=== PATIENT | female | born 1990 | race Caucasian/White ===

== ENCOUNTER 2023-04-06 10:00 | Emergency (ER) | payer MEDICAID, SELFPAY ==
[2023-04-06 10:08] VITALS: BP 111/73; PULSE 75; RESP 20; TEMP 37; O2SAT 96; BMI 45.4
--- NOTE | 2023-04-06 10:22 | XR_ITS ---
The [address] [address] Patient Name: AMANDA PARMAR MRN: [id number] date: 1990 Sex: F Assigned Patient Location: ED.MAIN Current Patient Location: ED.MAIN Accession/Order Number: [id number] Exam Date: 04/06/2023 10:30 Report Date: 04/06/2023 11:09 At the request of: NAIDA DREW Procedure: XR chest 1V EXAM: XR chest 1V HISTORY: Dyspnea; technologist notes state productive cough for 2 weeks. COMPARISON: None. TECHNIQUE: AP erect portable chest radiograph performed. FINDINGS: The trachea is normal. The heart size is normal. The cardiomediastinal silhouette and hilar shadows are normal. The lung volumes are normal. The lung singh are clear. There is no pneumothorax or osseous abnormality. IMPRESSION: Unremarkable AP erect portable chest radiograph. Electronically authenticated by: HERMAN LINDQUIST Date: 04/06/2023 11:09
--- NOTE | 2023-04-06 10:45 | ED.URI1 ---
HPI - URI/Sore Throat General Chief Complaint: Upper Respiratory Infection Stated Complaint: COUGH/MUCUS Time Seen by Provider: 04/06/23 10:22 Source: patient Limitations: no limitations History of Present Illness HPI Narrative: patient's had cough congestion for several days. Several family members have recently been ill. She normally has clear sputum but now it stick brown and yellow. There is no blood. She has no history of chronic obstructive pulmonary disease or asthma. Does not have any other comorbidities. Does not have a cold symptomatology. No vomiting, does have slight diarrhea. Is not on any antibiotics. Continues to use substantial amounts or tobacco products. Says she gets bronchitis a couple times a year. MD elicited complaint: Reports cough; Denies sore throat or nasal congestion Related Data Home Medications Medication Instructions Recorded Confirmed No Known Home Medications 04/06/23 04/06/23 Allergies Allergy/AdvReac Type Severity Reaction Status Date / Time Penicillins Allergy Hives Verified 04/06/23 10:07 [facility] Social History Smoking status: Heavy tobacco smoker Exam Constitutional Vital Signs - 24 hr 04/06/23 10:08 Temperature 98.6 F Pulse Rate [Monitor] 75 Respiratory Rate 20 Blood Pressure [Right Arm] 111/73 Pulse Oximetry 96 Oxygen Delivery Method Room Air Common normals: no apparent distress and healthy appearing Chest Common normals: inspection of chest normal Respiratory Common normals: normal respiratory effort, no retractions and no use of accessory muscles Effort & inspection: able to speak in complete sentences and audible wheezes; no prolonged expiratory phase Cardio Rate: regular rate Extremity Common normals: normal to inspection, no calf tenderness and no pedal edema Course Vital Signs Vital signs: Vital Signs Temperature 98.6 F 04/06/23 10:08 Pulse Rate 75 04/06/23 10:08 Respiratory Rate 20 04/06/23 10:08 Blood Pressure 111/73 04/06/23 10:08 Pulse Oximetry 96 04/06/23 10:08 Oxygen Delivery Method Room Air 04/06/23 10:08 Temperature 98.6 F 04/06/23 10:08 Pulse Rate 75 04/06/23 10:08 Respiratory Rate 20 04/06/23 10:08 Blood Pressure 111/73 04/06/23 10:08 Pulse Oximetry 96 04/06/23 10:08 Oxygen Delivery Method Room Air 04/06/23 10:08 MDM - URI/Sore Throat MDM Narrative Medical decision making narrative: patient presents went uncomplicated upper estuary infection consistent with a purulent bronchitis and is a very heavy smoker at risk for bacterial infection. We'll initiate an antibiotic and put her on a bronchial dilator. Cigarette cessation was discussed in detail. Differential Diagnosis Differential diagnosis: Likely upper respiratory infection and bronchitis Smoking Cessation Time spent discussing smoking cessation with patient: 3 to 10 minutes Discharge Plan Discharge Chief Complaint: Upper Respiratory Infection Clinical Impression: Bronchitis Patient Disposition: Home, Self-Care Time of Disposition Decision: 10:48 Condition: Good Prescriptions / Home Meds: No Action No Known Home Medications Stand Alone Forms: Portal Instructions Referrals: Physician,Non-Staff, MD [Primary Care Provider] - 1 week
[2023-04-06 10:50] VITALS: RESP 18; O2SAT 96
== END 2023-04-06 11:32 | disposition home or self-care (01) ==
PROVIDERS: Emergency Provider Emergency Medicine Emergency Medical Services
DX: J06.9 Acute upper respiratory infection, unspecified (principal)
CPT/HCPCS: 71045; 99284

== ENCOUNTER 2023-11-27 21:29 | Outpatient (REF) | payer OTHER, SELFPAY ==
[2023-12-03 11:09] LABS: Age Gdln ACOG Testing Note (.); HPV Aptima Negative (Negative); IGP, Aptima HPV, rfx 16/18,45 Note (.)
== END 2023-11-27 21:30 | disposition home or self-care (01) ==
LOC: LAB 21:29
PROVIDERS: Visit Provider Physician Assistant
DX: Z01.419 Encounter for gynecological examination (general) (routine) without abnormal findings (principal)
CPT/HCPCS: 87624; G0145